=== PATIENT | female | born 1940 | race Caucasian/White ===

== ENCOUNTER 2021-10-19 07:05 | Day surgery (SDC) | payer BC ==
[~2021-10-19] VITALS: Ht 157.5 cm; Wt 65.8 kg
[~2021-10-19 07:05] MED LIST: AMLO-489 PO; ATOR20TA50 PO; CITA-73 PO; DONE1TAB88 PO; PANT40TA2 PO; SUCR1TAB PO
[2021-10-19] MEDS ORDERED: MIDAZOLAM HCL 2MG/2ML 2ml VIAL (1mg/ml) IV ONE (08:15)
[2021-10-19] MEDS ORDERED: fentaNYL CITRATE 100 MCG/2 ML VL IV ONE (08:15)
[2021-10-19] MEDS ORDERED: LIDOCAINE VISCOUS 2% 15ML UD MT ONE (08:15)
== END 2021-10-19 10:30 | disposition home or self-care (01) ==
LOC: CATH 07:05
PROVIDERS: ATTEND Internal Medicine
DX: I08.3 Combined rheumatic disorders of mitral, aortic and tricuspid valves (principal); I37.1 Nonrheumatic pulmonary valve insufficiency; I73.00 Raynaud's syndrome without gangrene; Z95.0 Presence of cardiac pacemaker; Z88.2 Allergy status to sulfonamides; Z82.49 Family history of ischemic heart disease and other diseases of the circulatory system; Z83.3 Family history of diabetes mellitus; Z20.822 Contact with and (suspected) exposure to COVID-19
CPT/HCPCS: 93312; J2250; J3010; J7030; U0003; 99152

== ENCOUNTER 2024-09-13 23:23 | Emergency (ER) | payer OTHER, MEDICAID ==
[~2024-09-13] VITALS: Ht 157.5 cm; Wt 57.1 kg
[~2024-09-13 23:23] MED LIST changes: -AMLO-489 PO; +AMLO1TAB22 PO
--- NOTE | 2024-09-13 23:50 | ED.PDOC ---
GI ASSESSMENT HPI Comments 84 year old female came to ER due to abdominal pain. Patient states for the past few days she has been having intermittent episodes of lower abdominal pain, non radiating, associated with bouts of nausea and vomiting. Noted to have abdominal distention, generalized weakness with loss of appetite. Denies any urinary symptoms like dysuria or hematuria. She does have history of ovarian tumors, Chief Complaint: Abdminal Pain Time Seen by MD: 23:49 Reviewed Notes: Nurses Notes Allergies: Coded Allergies: Sulfa Antibiotics (Verified Allergy, Unknown, 10/16/21) SULFA OPHTHALMIC AGENTS Home Meds Reported Medications Donepezil Hydrochloride (DONEPEZIL HCL) 10 Mg Tab, 1 TAB PO DAILY 10/16/21 Amlodipine Besylate (Amlodipine Besylate) 5 Mg Tab, 5 MG PO DAILY 10/16/21 Pantoprazole Sodium Sesquihydr (Protonix) 40 Mg Tab, 40 MG PO DAILY 10/16/21 Atorvastatin Calcium (ATORVASTATIN CALCIUM) 20 Mg Tab, 1 TAB PO DAILY 10/16/21 Sucralfate (Sucralfate) 1 Gm Tab, 1 GM PO DAILY 10/16/21 Citalopram Hydrobromide (Citalopram Hydrobromide) 40 Mg Tab, 40 MG PO DAILY 10/16/21 Information Source: Patient, Relative Mode of Arrival: Ambulatory Timing: Days Duration: Intermittent Prehospital treatment: None Quality: Aching Associated sign and symptoms: Nausea, Vomiting, Abdominal Pain Review of Systems REVIEW OF SYSTEMS: No fever, no chills, or fatigue HEENT: No sore throat, no earache, no congestion, no neck pain. Cardiac: No chest pain. No palpitations. Lungs: No shortness of breath, no cough. GI: (+) nausea, (+) vomiting, no diarrhea, no constipation, (+) abdominal pain : No dysuria, frequency, or urgency. No hematuria. Musculoskeletal: No joint pain , no joint swelling, no extremity edema. Skin: No rash, no itching. Neuro: No headache, no dizziness, no weakness Vital Signs Vital Signs Date Time Temp Pulse Resp B/P (MAP) Pulse Ox O2 Delivery O2 Flow Rate FiO2 09/13/24 23:55 98.4 84 18 99/69 (79) 93 Physical Exam General: Awake, alert and oriented. No acute distress. Skin: Skin in warm, dry and intact. Appropriate color for ethnicity. Nailbeds pink with no cyanosis. HEENT: The head is normocephalic and atraumatic. Conjunctivae are clear without exudates or hemorrhage. Sclera is non-icteric. EOM are intact. No signs of nystagmus. Eyelids are normal in appearance without swelling or lesions. Oral mucosa is pink and moist Neck: The neck is supple with normal range of motion. No JVD. Cardiac: Heart rate and rhythm are normal. No murmurs, gallops, or rubs are auscultated. Respiratory: No signs of respiratory distress. Lung sounds are clear in all lobes bilaterally without rales, ronchi, or wheezes. Abdominal: Abdomen is soft, non-tender without distention. Bowel sounds are present and normoactive in all four quadrants. Extremities: Upper and lower extremities are atraumatic in appearance without deformity or edema. Neurological: The patient is awake, alert and oriented to person, place, and time with normal speech. Speech is clear. There is no facial asymmetry. Psychiatric: Appropriate mood and affect. Good judgement and insight. No visual or auditory hallucinations. Past Medical History PAST MEDICAL HISTORY: CHF, HTN Past Medical History (Other): pulmonary hypertension, esophageal varices Surgical History: , Pacemaker [employer] History: Ovarian Cancer, Ovarian Cysts Family History Family History: Reviewed,noncontributory to illness Social History Smoker: Non-Smoker Alcohol: Denies ETOH Use Drugs: Denies Drug Use Lives In: Home Was a procedure done? Was a procedure done?: No GI differential Dx Differential Diagnosis: Cholecystitis, Diverticular disease, Gastritis/PUD, Gastroenteritis, Hernia, Hepatitis, Ovarian cyst/torsion, Pancreatitis, PID, UTI, Urolithiasis X-Ray, Labs, Meds, VS Vital Signs Date Time Temp Pulse Resp B/P (MAP) Pulse Ox O2 Delivery O2 Flow Rate FiO2 09/13/24 23:55 98.4 84 18 99/69 (79) 93 Lab Test 09/14/24 00:33 Range/Units White Blood Count 8.0 4.4-10.8 10^3/uL Red Blood Count 4.56 4.0-5.20 10^6/uL Hemoglobin 10.6 L 12.2-16.2 g/dL Hematocrit 33.5 L 36.0-46.0 % Mean Corpuscular Volume 73.5 L 80.0-100.0 fL Mean Corpuscular Hemoglobin 23.3 L 28.0-32.0 pg Mean Corpuscular Hemoglobin Concent 31.6 L 32.0-36.0 g/dL Red Cell Distribution Width 20.2 H 11.8-14.3 % Platelet Count 280 140-450 10^3/uL Mean Platelet Volume 8.1 6.9-10.8 fL Neutrophils (%) (Auto) 83.4 H 37.0-80.0 % Lymphocytes (%) (Auto) 7.7 L 10.0-50.0 % Monocytes (%) (Auto) 8.4 0.0-12.0 % Eosinophils (%) (Auto) 0.2 0.0-7.0 % Basophils (%) (Auto) 0.3 0.0-2.0 % Neutrophils # (Auto) 6.7 1.6-8.6 10 ^3/uL Lymphocytes # (Auto) 0.6 0.4-5.4 10 ^3/uL Monocytes # (Auto) 0.7 0-1.3 10 ^3/uL Eosinophils # (Auto) 0 0-0.8 10 ^3/uL Basophils # (Auto) 0 0-0.2 10 ^3/uL Nucleated Red Blood Cells 0.0 % Sodium Level 137 136-145 mmol/L Potassium Level 3.1 L 3.5-5.1 mmol/L Chloride Level 98 98-107 mmol/L Carbon Dioxide Level 27 20-31 mmol/L Anion Gap 12 5-15 Blood Urea Nitrogen 17 9-23 mg/dL Creatinine 1.02 0.550-1.02 mg/dL Glomerular Filtration Rate Calc 54 >90 mL/min BUN/Creatinine Ratio 16.7 10.0-20.0 Serum Glucose 105 74-106 mg/dL Lactic Acid Level 1.4 0.4-2.0 mmol/L Calcium Level 9.8 8.7-10.4 mg/dL Total Bilirubin 0.8 0.2-1.0 mg/dL Aspartate Amino Transferase (AST) 12 L 13-40 U/L Alanine Aminotransferase (ALT) < 9 7-40 U/L Alkaline Phosphatase 91 46-116 U/L Total Protein 6.8 5.7-8.2 g/dL Albumin 4.2 3.2-4.8 g/dL Lipase 28 12-53 U/L PROCEDURE(s): PELUS - PELVIC INDICATION: Pelvic Pain TECHNIQUE: Multiple real-time grayscale transabdominal sonographic images along with color and duplex doppler of the uterus and ovaries were obtained. COMPARISON: None FINDINGS: IMPRESSION: Suboptimal transabdominal pelvic ultrasound study. Uterus not well visualized. Neither of the ovaries could be visualized. A wall circumscribed simple cystic lesion measuring up to 7.6 cm noted in the right adnexal region. Time of 1ST Reevaluation: 23:45 Reevaluation 1ST: Unchanged Patient Education/Counseling: Diagnosis, Treatment Family Education/Counseling: Diagnosis, Treatment Departure 1 Departure Time of Disposition: 02:53 Impression: Primary Impression: YFN (acute kidney injury) Additional Impressions: Abdominal pain Hypokalemia Disposition: ADMITTED INPATIENT Condition: Stable Comments 84 F w/ nausea vomiting, abdominal pain. Discussed with OSCAR Luo from [employer] @ 05:14 with request for admission. He will see patient in the ED. IV fluids, Urinalysis, COVID, influenza tests pending Extensive evaluation was performed in attempt to identify or rule out: (See differential diagnosis section) The following tests were ordered, and results were reviewed by me: (See diagnostic results section) The following test were independently interpreted by me: N/A I reviewed and agreed with the following test results read by other providers: N/A I reviewed the following notes from the pt's past medical encounters: N/A Additional information was gathered from interviewing the following independent historians: Patient's daughter at bedside Discussion of management or test interpretation with external physician/other qualified health health care / medical 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 Due to patient's current clinical condition, high risk of decline and poor outcome if discharged and need for further inpatient management and monitoring, patient will be admitted to the hospital. Drug therapy requiring intensive monitoring for toxicity: N/A Parenteral controlled substances: N/A Decision regarding elective major surgery with identified patient or procedure risk factors: N/A Decision regarding emergency major surgery: N/A Decision not to resuscitate or to de-escalate care because of poor prognosis: N/A Diagnosis or treatment significantly limited by social determinants of health: N/A Critical Care Note Critical Care Time?: No Stability Stability form required: No I personally scribed for ZHAO BALBUENA MD ([email or web address]) on 09/13/24 at 23:50. Electronically submitted by Tee Johnston ([facility] I personally scribed for ZHAO BALBUENA MD (YANIMINCH) on 09/13/24 at 23:58. Electronically submitted by Tee Johnston ([facility]). I personally scribed for ZHAO BALBUENA MD (YANIMINCH) on 09/14/24 at 00:39. Electronically submitted by Tee Johnston ([facility]). I personally scribed for ZHAO BALBUENA MD ([email or web address]) on 09/14/24 at 01:08. Electronically submitted by Tee Johnston ([facility]). ZHAO BALBUENA MD Sep 13, 2024 23:50
[2024-09-14 00:59] LABS: Basophils # (auto) 0 10 ^3/uL (0-0.2); Basophils % (auto) 0.3 % (0.0-2.0); Eosinophils # (auto) 0 10 ^3/uL (0-0.8); Eosinophils % (auto) 0.2 % (0.0-7.0); Hematocrit 33.5 % (36.0-46.0); Hemoglobin 10.6 g/dL (12.2-16.2); Lymphocytes # (auto) 0.6 10 ^3/uL (0.4-5.4); Lymphocytes % (auto) 7.7 % (10.0-50.0); Mean Corpuscular Hemoglobin 23.3 pg (28.0-32.0); Mean Corpuscular Hgb Conc. 31.6 g/dL (32.0-36.0); Mean Corpuscular Volume 73.5 fL (80.0-100.0); Monocytes # (auto) 0.7 10 ^3/uL (0-1.3); Monocytes % (auto) 8.4 % (0.0-12.0); Neutrophils # (auto) 6.7 10 ^3/uL (1.6-8.6); Neutrophils % (auto) 83.4 % (37.0-80.0); Platelet Count (auto) 280 10^3/uL (140-450); Red Blood Cells 4.56 10^6/uL (4.0-5.20); Red Cell Distribution Width 20.2 % (11.8-14.3)
--- NOTE | 2024-09-14 01:03 | DVH ---
INDICATION: Pelvic Pain TECHNIQUE: Multiple real-time grayscale transabdominal sonographic images along with color and duplex doppler of the uterus and ovaries were obtained. COMPARISON: None FINDINGS: IMPRESSION: Suboptimal transabdominal pelvic ultrasound study. Uterus not well visualized. Neither of the ovaries could be visualized. A wall circumscribed simple cystic lesion measuring up to 7.6 cm noted in the right adnexal region.
[2024-09-14 01:09] LABS: Albumin 4.2 g/dL (3.2-4.8); Alkaline Phosphatase 91 U/L (46-116); Anion Gap 12 (5-15); BUN/Creatinine Ratio 16.7 (10.0-20.0); Bilirubin, Total 0.8 mg/dL (0.2-1.0); Blood Urea Nitrogen 17 mg/dL (9-23); Calcium 9.8 mg/dL (8.7-10.4); Carbon Dioxide 27 mmol/L (20-31); Glucose 105 mg/dL (74-106); Lipase 28 U/L (12-53); Sodium 137 mmol/L (136-145); Total Protein 6.8 g/dL (5.7-8.2)
[2024-09-14 01:10] LABS: Alanine Aminotransferase < 9 U/L (7-40); Aspartate Aminotransferase 12 U/L (13-40); Chloride 98 mmol/L (98-107); Potassium 3.1 mmol/L (3.5-5.1)
[2024-09-14] MEDS: IOHEXOL 300 MG/ML 100ML BOTTLE IJ ONE (01:30)
--- NOTE | 2024-09-14 02:06 | DVH ---
Exam: CT CT AB PEL WITH IV CON ONLY History: Abdominal Pain, Hx ovarian tumor, elevated CEA COMPARISON: None Technique: Multidetector spiral CT of the abdomen and pelvis was performed from lung bases to pubic s ymphysis. Intravenous contrast was administered during this examination. Portal venous imaging was obtained. Axial, coronal and sagittal multiplanar reformats were performed by the technologist on a separate workstation. Radiation Dose : 1. Abdomen/Pelvis: CTDIvol [CTDIvol]mGy, DLP mGy*cm. CONTRAST: Type of contrast: Contrast injected: ml Contrast ingested: ml Findings: Lung Bases: Lung bases are clear with no pleural diffusion. Mild cardiomegaly. Small pericardial effu analia. Liver: The liver is normal in size. No focal lesions. Normal hepatic vascular enhancement. Gallbladder and biliary Tree: Cholecystectomy. No evidence of biliary ductal dilatation. Spleen: No abnormality demonstrated Pancreas: No abnormality demonstrated. Adrenal Glands: No abnormality demonstrated Kidneys: Mild cortical renal scarring in left kidney. Evidence of 2 simple cysts in the right kidn ey, the larger in the lower pole measuring 7.8 cm. No evidence of renal calculus or hydroureteronephr osis. Bladder: Unremarkable Bowel: Small hiatal hernia. Stomach appears grossly unremarkable. No dilated or thick-walled loops of large or small bowel noted. Appendix is not visualized. Large amount of stool present throughout the large bowel. Ascites: Absent Lymphadenopathy: No evidence of lymphadenopathy. Abdominal wall and Mesentery: Unremarkable. Vasculature: Atherosclerotic changes without aneurysmal dilatation. Pelvic Organs: There is a well-circumscribed low-density/cystic lesion in the midline pelvis measurin g up to approximately 8.5 x 7 x 8 cm which contains 2 punctate foci of mural calcification. No internal communications writer al septations or solid enhancing components identified. Uterus appears unremarkable. Musculoskeletal: No aggressive bony lesions or fracture. IMPRESSION: Well-circumscribed low-density/cystic lesion in midline pelvis measuring up to approximately 8.5 cm w hich contains 2 punctate foci of mural calcification without internal septations or solid enhancing c omponents. Small pericardial effusion. Radiation optimization: All CT scans at this facility use at least one of these dose optimization lorenza hniques: Automated exposure control mA and/or kV adjustment per patient size (includes targeted exams where dose is matched to clinical indication) or iterative reconstruction.
[2024-09-14] MEDS: SODIUM CHLORIDE 0.9% 1,000 ML IV ONE (05:41)
[2024-09-14] MEDS: POTASSIUM EFFERVESENT TAB 25 MEQ PO ONE (05:41)
[2024-09-14 05:49] VITALS: TEMP 98.2
--- NOTE | 2024-09-14 06:33 | DVHINCON2 ---
NICOLÁS MURO NP 09/14/24 0633: Date of service: Sep 14, [address] Laurent Reason for Consultation Medical management History of Present Illness Information in the HPI is acquired with the Assistance of the patient's daughter, Rae. 84-year-old female is brought in by her daughter with complaints of one episode of vomiting last night prior to arrival to the emergency department. Patient was also complain of sudden onset abdominal pain. At this time patient was seen and evaluated in the emergency department. CBC and BMP are unremarkable. CT of the abdomen and pelvis with contrast had no acute findings. However, did present a well-circumscribed low-density/cystic lesion in midline pelvis measuring up to 8.5 cm which contains two punctate foci of mural calcifications without internal septations or solid enhancing components. At this time the ER workup is still incomplete with a pending UA, influenza and COVID swabs. Patient's daughter did endorse some mild intermittent forgetfulness/confusion. At this time there are no complaints of fevers, chills, shortness for breath, chest pain, palpitations, diarrhea, dysuria, hematuria. Social History Denies ETOH, illicit drugs, smoking Allergies: Coded Allergies: Sulfa Antibiotics (Verified Allergy, Unknown, 10/16/21) SULFA OPHTHALMIC AGENTS Home Meds Active Scripts Ondansetron Odt 4MG Tab (ZOFRAN PO) 4 Mg Tb, 4 MG PO Q6HPRN PRN, #14 TAB ODT TAB-DISSOLVE IN MOUTH, THEN SWALLOW Prov:FRANK CHRISTOPHER MD 09/14/24 Reported Medications Donepezil Hydrochloride (DONEPEZIL HCL) 10 Mg Tab, 1 TAB PO DAILY 10/16/21 Amlodipine Besylate (Amlodipine Besylate) 5 Mg Tab, 5 MG PO DAILY 10/16/21 Pantoprazole Sodium Sesquihydr (Protonix) 40 Mg Tab, 40 MG PO DAILY 10/16/21 Atorvastatin Calcium (ATORVASTATIN CALCIUM) 20 Mg Tab, 1 TAB PO DAILY 10/16/21 Sucralfate (Sucralfate) 1 Gm Tab, 1 GM PO DAILY 10/16/21 Citalopram Hydrobromide (Citalopram Hydrobromide) 40 Mg Tab, 40 MG PO DAILY 10/16/21 Review of Systems Ten systems reviewed and negative except as per HPI Vital Signs Vital Signs Date Time Temp Pulse Resp B/P (MAP) Pulse Ox O2 Delivery O2 Flow Rate FiO2 09/14/24 05:49 75 16 93 Room Air 09/14/24 05:49 98.2 129/67 (87) 98.2 Physical Exam GENERAL: Patient appearing stated age, in no acute distress. HEENT: Pupils equal and reactive to light and accommodation. Extraocular muscles intact. Mucous membranes moist. Conjunctivae pink. Anicteric sclerae. LUNGS: Bilateral air entry. No wheezes, rhonchi or rales. HEART: Regular rate and rhythm. Normal S1 and S2. ABDOMEN: BS normoactive, soft, nontender, and nondistended. No CVA tenderness. EXTREMITIES: No clubbing, cyanosis, edema. No calf tenderness. Pedal pulses 2+. NEUROLOGICAL: The patient is alert and oriented times 3. CN II-XII intact. No focal deficits on gross sensory or motor examination. Labs/Diagnostic Data Labs Test 09/14/24 00:33 Range/Units White Blood Count 8.0 4.4-10.8 10^3/uL Red Blood Count 4.56 4.0-5.20 10^6/uL Hemoglobin 10.6 L 12.2-16.2 g/dL Hematocrit 33.5 L 36.0-46.0 % Mean Corpuscular Volume 73.5 L 80.0-100.0 fL Mean Corpuscular Hemoglobin 23.3 L 28.0-32.0 pg Mean Corpuscular Hemoglobin Concent 31.6 L 32.0-36.0 g/dL Red Cell Distribution Width 20.2 H 11.8-14.3 % Platelet Count 280 140-450 10^3/uL Mean Platelet Volume 8.1 6.9-10.8 fL Neutrophils (%) (Auto) 83.4 H 37.0-80.0 % Lymphocytes (%) (Auto) 7.7 L 10.0-50.0 % Monocytes (%) (Auto) 8.4 0.0-12.0 % Eosinophils (%) (Auto) 0.2 0.0-7.0 % Basophils (%) (Auto) 0.3 0.0-2.0 % Neutrophils # (Auto) 6.7 1.6-8.6 10 ^3/uL Lymphocytes # (Auto) 0.6 0.4-5.4 10 ^3/uL Monocytes # (Auto) 0.7 0-1.3 10 ^3/uL Eosinophils # (Auto) 0 0-0.8 10 ^3/uL Basophils # (Auto) 0 0-0.2 10 ^3/uL Nucleated Red Blood Cells 0.0 % Sodium Level 137 136-145 mmol/L Potassium Level 3.1 L 3.5-5.1 mmol/L Chloride Level 98 98-107 mmol/L Carbon Dioxide Level 27 20-31 mmol/L Anion Gap 12 5-15 Blood Urea Nitrogen 17 9-23 mg/dL Creatinine 1.02 0.550-1.02 mg/dL Glomerular Filtration Rate Calc 54 >90 mL/min BUN/Creatinine Ratio 16.7 10.0-20.0 Serum Glucose 105 74-106 mg/dL Lactic Acid Level 1.4 0.4-2.0 mmol/L Calcium Level 9.8 8.7-10.4 mg/dL Total Bilirubin 0.8 0.2-1.0 mg/dL Aspartate Amino Transferase (AST) 12 L 13-40 U/L Alanine Aminotransferase (ALT) < 9 7-40 U/L Alkaline Phosphatase 91 46-116 U/L Total Protein 6.8 5.7-8.2 g/dL Albumin 4.2 3.2-4.8 g/dL Lipase 28 12-53 U/L Assessment Mild hypokalemia 8.5 cm pelvic lesion Nausea/vomiting Plan/Recommendation While in the emergency department patient has remained hemodynamically stable. CBC unremarkable for any acute findings. BMP had mild hypokalemia 3.1, Which was replenished in the emergency department. CT of the abdomen and pelvis with contrast was also unremarkable for acute findings. I did request nursing staff complete the emergency department workup and collect and send a urine sample for urine analysis. After having a lengthy discussion with the patient's daughter Rae regarding current findings in the emergency department, patient will follow up at [facility] urgent care center at 8:00 a.m. [facility] [place] to set up home safety evaluation and to contact the patient's daughter Rae regarding consultation for hospice evaluation for the patient. Both patient and the patient's daughter prefer outpatient follow up versus inpatient admission at this time. Patient was provided with strict ER precautions including but not limited to syncope, dizziness, shortness of breath, chest pain, palpitations, any signs of over bleeding including hematemesis, hematochezia, Melena. Plan discussed with: Patient, Daughter FRANK CHRISTOPHER MD 09/14/24 1327: Allergies: Coded Allergies: Sulfa Antibiotics (Verified Allergy, Unknown, 10/16/21) SULFA OPHTHALMIC AGENTS Home Meds Active Scripts Ondansetron Odt 4MG Tab (ZOFRAN PO) 4 Mg Tb, 4 MG PO Q6HPRN PRN, #14 TAB ODT TAB-DISSOLVE IN MOUTH, THEN SWALLOW Prov:FRANK CHRISTOPHER MD 09/14/24 Reported Medications Donepezil Hydrochloride (DONEPEZIL HCL) 10 Mg Tab, 1 TAB PO DAILY 10/16/21 Amlodipine Besylate (Amlodipine Besylate) 5 Mg Tab, 5 MG PO DAILY 10/16/21 Pantoprazole Sodium Sesquihydr (Protonix) 40 Mg Tab, 40 MG PO DAILY 10/16/21 Atorvastatin Calcium (ATORVASTATIN CALCIUM) 20 Mg Tab, 1 TAB PO DAILY 10/16/21 Sucralfate (Sucralfate) 1 Gm Tab, 1 GM PO DAILY 10/16/21 Citalopram Hydrobromide (Citalopram Hydrobromide) 40 Mg Tab, 40 MG PO DAILY 10/16/21 Assessment Called by nurse to evaluate her after patient has an episode of vomiting. Patient felt better after vomiting episode. Patient is known to have a pelvic mass and apparently in the process of having hospice discussions. Per [facility] on-call outsole caser [facility] already spoken to patient's daughter and are willing to take her home on hospice. Patient is clinically stable sitting in the chair. Examined along with the nurse next to me. Patient does not have any acute abdominal findings. Patient advised to use Zofran as needed at home for nausea. If she has persistent vomiting to come back to the ER or told to go with the [facility] urgent [facility] as needed. Patient verbalized understanding of this and she does not want to be get admitted to the hospital and wants to go home. Therefore I have talked with the patient and nurse that she can be discharged home with a home hospice and returned to the ER or urgent care if her symptoms does not resolve. Patient verbalized understanding of this and agree with the discharge care plan. Plan discussed with: Patient NICOLÁS MURO NP Sep 14, 2024 06:33 FRANK CHRISTOPHER MD Sep 14, 2024 13:27
[2024-09-14 07:20] LABS: Urine Bacteria None Seen /hpf (None Seen)
[2024-09-14 07:26] VITALS: BP 136/53
[2024-09-14 07:51] LABS: Urine Blood TRACE /uL (Negative); Urine Clarity Clear (Clear); Urine Color Light-Yellow (Yellow); Urine Protein, UAD Negative (Negative); Urine Specific Gravity 1.014 (1.001-1.035); Urine Squamous Epithelial Cell FEW /hpf (<5); Urine Urobilinogen Normal (Negative); Urine WBC 3 /HPF (0-5); Urine pH 6.5 (5.0-9.0)
[2024-09-14 08:39] LABS: COVID19 ANTIGEN SOFIA FIA NEGATIVE (NEGATIVE)
[2024-09-14 08:40] LABS: Rapid Influenza A Negative (Negative); Rapid Influenza B Negative (Negative)
[2024-09-14 10:18] VITALS: PULSE 84; RESP 20; O2SAT 97
[2024-09-14] MEDS: ONDANSETRON HCL 4 MG/2 ML VIAL IV ONE (10:23)
[2024-09-14] MEDS ORDERED: ZOFR4T PO (13:23)
== END 2024-09-14 13:09 | disposition home or self-care (01) ==
LOC: ER 23:23
DX: N17.9 Acute kidney failure, unspecified (principal); E87.6 Hypokalemia; I11.0 Hypertensive heart disease with heart failure; I50.9 Heart failure, unspecified; Z79.899 Other long term (current) drug therapy; Z85.43 Personal history of malignant neoplasm of ovary; Z88.2 Allergy status to sulfonamides; Z95.0 Presence of cardiac pacemaker; Z20.822 Contact with and (suspected) exposure to COVID-19
CPT/HCPCS: 36415; 74177; 76856; 80053; 81001; 83605; 83690; 85025; 87086; 87426; 87804; 96360; 99285; J7030; Q9967; J2405